=== PATIENT | male | born 1960 | race Caucasian/White ===

== ENCOUNTER 2019-06-15 08:10 | Day surgery (SDC) | payer MEDICARE, MEDICAID ==
[2019-06-15] VITALS (13 sets, daily range): BP systolic 120–137; BP diastolic 70–82
[~2019-06-15] VITALS: Ht 188 cm; Wt 84.2 kg
[2019-06-15] MEDS ORDERED: normal saline 1000ml 1,000 ML IV PRN (08:30)
[2019-06-15] MEDS ORDERED: albumin 25% 100mL bottle x 1 IV PRN (08:30)
[2019-06-15] MEDS ORDERED: SPIR25TA5 PO (08:37)
== END 2019-06-15 10:10 | disposition home or self-care (01) ==
LOC: SSTAY O 08:10
PROVIDERS: ATTEND Radiology Diagnostic Radiology
DX: K70.31 Alcoholic cirrhosis of liver with ascites (principal); Z72.89 Other problems related to lifestyle; F17.210 Nicotine dependence, cigarettes, uncomplicated; Z79.899 Other long term (current) drug therapy; Z98.890 Other specified postprocedural states
CPT/HCPCS: 49083; C1729; J7030

== ENCOUNTER 2019-08-02 07:55 | Day surgery (SDC) | payer MEDICARE ==
[~2019-08-02] VITALS: Ht 188 cm; Wt 86.3 kg
[2019-08-02] VITALS (9 sets, daily range): BP systolic 107–121; BP diastolic 65–76
[~2019-08-02 07:55] MED LIST: SPIR25TA5 PO
[2019-08-02] MEDS ORDERED: LEVO25TA2 PO (08:22)
[2019-08-02] MEDS ORDERED: FURO-149 PO (08:22)
[2019-08-02] MEDS ORDERED: albumin 25% 100mL bottle x 1 IV PRN (08:25)
[2019-08-02] MEDS ORDERED: LIDOcaine 1% 30ml preserv. free vial SQ STA (08:41)
== END 2019-08-02 10:40 | disposition home or self-care (01) ==
LOC: SSTAY O 07:55
PROVIDERS: ATTEND Radiology Vascular & Interventional Radiology
DX: K70.31 Alcoholic cirrhosis of liver with ascites (principal); E03.9 Hypothyroidism, unspecified; Z79.899 Other long term (current) drug therapy; Z98.890 Other specified postprocedural states
CPT/HCPCS: 49083; C1729; J2001

== ENCOUNTER 2019-08-19 06:33 | Day surgery (SDC) | payer MEDICARE ==
[~2019-08-19] VITALS: Ht 188 cm; Wt 85.0 kg
[2019-08-19] VITALS (7 sets, daily range): BP systolic 102–116; BP diastolic 58–69
[~2019-08-19 06:33] MED LIST changes: +FURO-149 PO; +LEVO25TA2 PO
[2019-08-19] MEDS ORDERED: albumin 25% 100mL bottle x 1 IV PRN (06:55)
[2019-08-19] MEDS ORDERED: normal saline 1000ml 1,000 ML IV PRN (06:55)
[2019-08-19] MEDS ORDERED: FURO-150 PO (07:09)
== END 2019-08-19 09:55 | disposition home or self-care (01) ==
LOC: SSTAY O 06:33
PROVIDERS: ATTEND Radiology Vascular & Interventional Radiology
DX: K70.31 Alcoholic cirrhosis of liver with ascites (principal); E03.9 Hypothyroidism, unspecified; F17.200 Nicotine dependence, unspecified, uncomplicated; Z79.899 Other long term (current) drug therapy; Z98.890 Other specified postprocedural states
CPT/HCPCS: 49083; C1729; J7030; P9047

== ENCOUNTER 2019-09-06 06:47 | Day surgery (SDC) | payer MEDICARE ==
[~2019-09-06] VITALS: Ht 188 cm; Wt 81.8 kg
[~2019-09-06 06:47] MED LIST changes: -FURO-149 PO; +FURO-150 PO
[2019-09-06 06:50] VITALS: BP 112/69
[2019-09-06] MEDS ORDERED: normal saline 1000ml 1,000 ML IV PRN (07:10)
[2019-09-06] MEDS ORDERED: albumin 25% 100mL bottle x 1 IV PRN (07:10)
[2019-09-06 08:50] VITALS: BP 89/54
[2019-09-06 09:05] VITALS: BP 95/63
--- NOTE | 2019-09-06 09:17 | NUR ---
pt drainage slowed to stop. pt denies pain at this time. RENU Oscar at bedside.
[2019-09-06 09:20] VITALS: BP 94/56
[2019-09-06 09:35] VITALS: BP 98/62
[2019-09-06 09:50] VITALS: BP 93/56
== END 2019-09-06 10:00 | disposition home or self-care (01) ==
LOC: SSTAY O 06:47
PROVIDERS: ATTEND Radiology Vascular & Interventional Radiology
DX: K70.31 Alcoholic cirrhosis of liver with ascites (principal); E03.9 Hypothyroidism, unspecified; Z98.890 Other specified postprocedural states; Z79.899 Other long term (current) drug therapy
CPT/HCPCS: 49083; C1729; J7030; P9047

== ENCOUNTER 2020-02-13 12:19 | Emergency (ER) | payer MEDICARE, OTHER ==
[~2020-02-13] VITALS: Ht 182.9 cm; Wt 80.0 kg
[2020-02-13 12:22] VITALS: BP 108/71
--- NOTE | 2020-02-13 12:39 | NUR ---
pt states, it started yesterday morning, my left leg would start shaking and give way unable to stand on it and would fall. says happened about 30-40% of time when he would stand up.
[2020-02-13 13:29] LABS: ALANINE AMINOTRANSFERASE 11 U/L (12-78); ALBUMIN 2.3 G/DL (3.4-5.0); ALBUMIN/GLOBULIN RATIO 0.5 (1.1-1.5); ALKALINE PHOSPHATASE 89 IU/L (46-116); ANION GAP 6 (8-16); ASPARTATE AMINO TRANSFERASE 36 U/L (10-37); BILIRUBIN,TOTAL 1.8 MG/DL (0.1-1.0); BLOOD UREA NITROGEN 10 MG/DL (7-18); BUN/CREATININE RATIO 9.3 (5.4-32.0); CALCIUM 8.2 MG/DL (8.5-10.1); CHLORIDE 102 MMOL/L (99-107); CREATININE 1.08 MG/DL (0.60-1.10); GLUCOSE 105 MG/DL (70-104); MAGNESIUM 1.7 MG/DL (1.5-2.4); SODIUM 137 MMOL/L (135-145); TOTAL CARBON DIOXIDE 29.3 MMOL/L (24-32); eGFR 70 ML/MIN
[2020-02-13] MEDS ORDERED: potassium Cl 20 mEq SR tablet PO STA (13:32)
[2020-02-13] MEDS ORDERED: POTA20TA19 PO (13:43)
== END 2020-02-13 14:16 | disposition home or self-care (01) ==
LOC: ER 12:20
DX: R53.1 Weakness (principal); E87.6 Hypokalemia; Z79.899 Other long term (current) drug therapy
CPT/HCPCS: 36415; 80053; 83735; 84100; 99284

== ENCOUNTER 2022-02-04 08:21 | Emergency (ER) | payer OTHER, MEDICARE ==
[~2022-02-04] VITALS: Ht 185.4 cm; Wt 75.9 kg
--- NOTE | 2022-02-04 08:34 | NUR ---
thomas daughter: [phone]
--- NOTE | 2022-02-04 10:00 | NUR ---
Checked on pt- pt requesting ETA to doc. notified.
--- NOTE | 2022-02-04 10:07 | NUR ---
Paracentesis tray set up at bedside with US. Consent to be signed.
[2022-02-04] MEDS ORDERED: LIDOcaine 1% (10mg/ml)w/preservative inj. 20ml MDV SQ ONE (10:15)
--- NOTE | 2022-02-04 11:00 | NUR ---
Paracentesis in progress. Dr. Fisher at bedside, Joanna QUESADAP assisting.
--- NOTE | 2022-02-04 11:24 | NUR ---
250cc fluid drained off abdomen. Not flowing anymore. 2nd attempt will be made.
--- NOTE | 2022-02-04 12:21 | NUR ---
PARACENTESIS done tube removed and dressing placed pt tollerated well
--- NOTE | 2022-02-04 12:23 | NUR ---
total of about [id number] ml of fluid removed from abd
[2022-02-04 12:24] VITALS: BP 95/55
== END 2022-02-04 13:07 | disposition home or self-care (01) ==
LOC: ER 08:21
DX: K70.31 Alcoholic cirrhosis of liver with ascites (principal); Z79.899 Other long term (current) drug therapy; Z72.89 Other problems related to lifestyle
CPT/HCPCS: 49083; 99285